=== PATIENT | male | born 1995 | race Caucasian/White ===

== ENCOUNTER → 2020-11-14 | Emergency (ER) | payer BC ==
[~2020-11-14] VITALS: Ht 170.2 cm; Wt 75.0 kg
[~2020-11-14] MED LIST: ALBU2.5V8 INH; AZIT250T6 PO; METH4TAB2 PO
--- NOTE | 2020-11-14 12:09 | PHYS DOC ---
General Adult EDM: Chief Complaint: COUGH HPI: HPI: Patient is a 25 year old male who presents with 3 days of productive cough with green/ yellow mucus. He does have a history of asthma. He chews tobacco but does not smoke. He has been using his inhaler and has been taking Singulair. He states that his allergies were pretty bad when he is younger but currently. He states he does have a little bit of a runny nose but not much congestion. He states that his throat is slightly sore from coughing. Patient denies any pain at this time. Review of Systems: Review of Systems: Constitutional: Denies fever or chills. [] Eyes: Denies change in visual acuity. [] HENT: + Runny nasal congestion or +sore throat. [] Respiratory: + Productive cough or denies shortness of breath. + Intermittent wheezing [] Cardiovascular: Denies chest pain or edema. [] GI: Denies abdominal pain, nausea, vomiting, bloody stools or diarrhea. [] : Denies dysuria. [] Musculoskeletal: Denies back pain or joint pain. [] Integument: Denies rash. [] Neurologic: Denies headache, focal weakness or sensory changes. [] Endocrine: Denies polyuria or polydipsia. [] Lymphatic: Denies swollen glands. [] Psychiatric: Denies depression or anxiety. [] Heart Score: C/O Chest Pain: No Risk Factors: Risk Factors: DM, Current or recent (<one month) smoker, HTN, HLP, family history of CAD, obesity. Risk Scores: Score 0 - 3: 2.5% MACE over next 6 weeks - Discharge Home Score 4 - 6: 20.3% MACE over next 6 weeks - Admit for Clinical Observation Score 7 - 10: 72.7% MACE over next 6 weeks - Early Invasive Strategies Physical Exam: PE: Constitutional: Well developed, well nourished, no acute distress, non-toxic appearance. [] HENT: Normocephalic, atraumatic, bilateral external ears normal, oropharynx moist, no oral exudates, nose normal. [] Eyes: PERRLA, EOMI, conjunctiva normal, no discharge. [] Neck: Normal range of motion, no tenderness, supple, no stridor. [] Cardiovascular:Heart rate regular rhythm, no murmur [] Lungs & Thorax: Bilateral breath sounds clear to auscultation [] Abdomen: Bowel sounds normal, soft, no tenderness, no masses, no pulsatile m asses. [] Skin: Warm, dry, no erythema, no rash. [] Back: No tenderness, no CVA tenderness. [] Extremities: No tenderness, no cyanosis, no clubbing, ROM intact, no edema. [] Neurologic: Alert and oriented X 3, normal motor function, normal sensory function, no focal deficits noted. [] Psychologic: Affect normal, judgement normal, mood normal. [] Normal physical exam EKG: EKG: [] Radiology/Procedures: Radiology/Procedures: [] Impression: [facility] [address] [place] [address] IMAGING REPORT Signed PATIENT: ALISTAIR ISRAEL ACCOUNT: [id number] : 1995 LOCATION: ER AGE: 25 SEX: M EXAM STATUS: PRE ER ORD. PHYSICIAN: TROY LOVELACE APRN REASON: COUGH PROCEDURE: CHEST PA & LATERAL EXAM: Chest, 2 views. HISTORY: Cough. COMPARISON: None. FINDINGS: 2 views of the chest are obtained. There is no infiltrate, pleural effusion or pneumothorax. The heart is normal in size. IMPRESSION: No acute pulmonary finding. Electronically signed by: Luz Maria Rogers MD (11/14/2020 12:26 PM) [id number] DICTATED and SIGNED BY: LUZ MARIA ROGERS MD DATE: 11/14/20 [id number] 0 Course & Med Decision Making: Course & Med Decision Making Pertinent Labs and Imaging studies reviewed. (See chart for details) COVID-19 CRITERIA: The patient was evaluated during the global COVID-19 pandemic, and that diagnosis was suspected/considered upon their initial presentation. Their evaluation, treatment and testing was consistent with current guidelines for patients who present with complaints or symptoms that may be related to COVID-19. See HPI. Alert and oriented x4. Ambulatory with a steady gait. Speaks in full clear sentences. Lungs are clear to auscultation all lobes. Nurse states he hears some wheezing in bases. Vital signs are within normal limits. Skin pink warm and dry. Patient has not had Covid vaccines. Patient denies fever, nausea, vomiting, diarrhea, shortness of breath, chest pain, abdominal pain, dizziness, headache, syncope, back pain. [] Dragon Disclaimer: Dragon Disclaimer: This electronic medical record was generated, in whole or in part, using a voice recognition dictation system. COVID-19 Patient Risks: Age 65 or older: No Sign of co-morbidity: No Exp to person + for COVID: No Exp to PUI: No Lower respiratory symptoms: Yes Fever: No Other: No PPE Use: Full PPE with N95 mask or PAPR: Yes Departure Departure Impression: Primary Impression: Cough Additional Impression: Person under investigation for COVID-19 Disposition: HOME / SELF CARE / HOMELESS Condition: STABLE Patient Instructions: Asthma, Adult, Cough, Adult Additional Instructions: See your primary care provider for follow-up care. Take medications as prescribed and with food. If anything worsens you can return to the emergency room. Scripts Azithromycin (AZITHROMYCIN TABLET) 250 Mg Tablet 1 PKG PO UD for 5 Days, #6 TAB 0 Refills 2 the first day followed by 1 for days 2-5 Prov: TROY LOVELACE APRN 11/14/20 Albuterol Sulfate (PROAIR HFA INHALER) 8.5 Gm Hfa.aer.ad 1 PUFF INH PRN Q6HRS PRN for SHORTNESS OF BREATH, #1 EACH 0 Refills Prov: TROY LOVELACE APRN 11/14/20 Methylprednisolone (MEDROL) 4 Mg Tab.ds.pk 1 PKG PO UD, #1 PKG Prov: TROY LOVELACE APRN 11/14/20 TROY LOVELACE APRN Nov 14, 2020 12:09
--- NOTE | 2020-11-14 12:29 | RAD ---
EXAM: Chest, 2 views. HISTORY: Cough. COMPARISON: None. FINDINGS: 2 views of the chest are obtained. There is no infiltrate, pleural effusion or pneumothorax . The heart is normal in size. IMPRESSION: No acute pulmonary finding. Electronically signed by: Luz Maria Rogers MD (11/14/2020 12:26 PM) [id number]
[2020-11-14 13:15] VITALS: BP 124/82
--- NOTE | 2020-11-18 10:42 | NUR ---
IP: Informed pt of positive covid test and the need to quarantine for 10 days. Pt verbalized understanding.
== END ==
LOC: ER 11:48
DX: U07.1 COVID-19 (principal)
CPT/HCPCS: 71046; 87426; 99284; U0003